=== PATIENT | male | born 1960 | race American Indian/Alaskan Native ===

== ENCOUNTER 2016-07-24 12:55 | Emergency (ER) | payer SELFPAY ==
[2016-07-24 14:13] LABS: Hematocrit 46.7 % (35.5-45.6); Hemoglobin 15.7 gm/dl (11.8-15.2); Mean Corpuscular HGB Conc 34 % (32-34); Mean Corpuscular Hemoglobin 33 pg (28-32); Mean Corpuscular Volume 97 fl (84-94); Platelet Count 282 K/mm3 (140-440); Red Blood Count 4.83 M/mm3 (3.65-5.03); Red Cell Distribution Width 14.3 % (13.2-15.2); White Blood Count 3.9 K/mm3 (4.5-11.0)
[2016-07-24 14:24] LABS: Anion Gap 17 mmol/L; BUN/Creatinine Ratio 11.42; Blood Urea Nitrogen 8 mg/dL (9-20); Calcium 8.9 mg/dL (8.4-10.2); Carbon Dioxide 26 mmol/L (22-30); Chloride 103.8 mmol/L (98-107); Glucose 109 mg/dL (75-100); Sodium 142 mmol/L (137-145)
[2016-07-24 14:49] LABS: Anisocytosis Few; Basophils % (Manual) 0 % (0.0-1.8); Blastocytes % (Manual) 0 %; Diff Status Complete
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
[2016-07-24 18:05] LABS: Bacteria,Urine 1+ /HPF (Negative); Bilirubin,Urine NEG (Negative); Blood,Urine NEG (Negative); Ketones,Urine NEG (Negative); Leukocyte Esterase,Urine NEG (Negative); Mucus,Urine FEW /HPF; Nitrite,Urine NEG (Negative); Protein,Urine <15 mg/dL mg/dL (Negative); Urobilinogen,Urine < 2.0 mg/dL (<2.0)
[2016-07-24] MEDS ORDERED: APRESOLINE ONE (18:12)
[2016-07-24] MEDS ORDERED: APRESOLINE PO ONE (18:18)
[2016-07-24] MEDS ORDERED: TYLENOL ONE (18:21)
[2016-07-24] MEDS ORDERED: TYLENOL PO ONE (18:37)
[2016-07-24] MEDS ORDERED: TENORMIN PO ONE (20:35)
[2016-07-24] MEDS ORDERED: NORCO 5/325 PO ONE (20:35)
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
[2016-07-24] MEDS ORDERED: CATAPRES PO ONE (22:22)
[2016-07-24 23:19] VITALS: BP 168/91
== END 2016-07-24 23:54 | disposition home or self-care (01) ==
LOC: ED 12:55
DX: I10 Essential (primary) hypertension (principal); M54.5 Low back pain; F17.200 Nicotine dependence, unspecified, uncomplicated
CPT/HCPCS: 36415; 80048; 81001; 85007; 85025

== ENCOUNTER 2017-02-26 07:16 | Emergency (ER) | payer OTHER ==
[2017-02-26 07:36] VITALS: BP 182/101
[2017-02-26] MEDS ORDERED: FIORICET PO ONE (10:54)
[2017-02-26] MEDS ORDERED: LIDOCAINE VISCOUS 2% MM NR (11:00)
[2017-02-26] MEDS ORDERED: SUBLIMAZE IV ONE (12:26)
--- NOTE | 2017-02-26 13:42 | Emergency Department Report ---
ED General Adult HPI - General Chief complaint: Dental/Oral Stated complaint: MOUTH PAIN/HEADACHE Time Seen by Provider: 02/26/17 09:59 Source: patient Mode of arrival: Ambulatory Limitations: No Limitations - History of Present Illness Initial comments: Patient is a 56-year-old male past medical history of arthralgia who presents with upper roof of mouth pain. He states the pain started yesterday he states is a 7 out of 10. It occurred suddenly he states he was eating and then he actually ate a piece of the of a toothpick which poked his mouth. He states that afterwards his mouth has been sore. And because he is having a headache located on the left temporal area it radiates to his mouth eating makes it worse and nothing makes it better. This is an achy type of pain. Patient also states that he is out of his pain medication for his arthralgia and he would like some hydrocodone. Severity scale (0 -10): 8 - Related Data Previous Rx's Medication Instructions Recorded Last Taken Type Atenolol [Tenormin] 50 mg PO BID #60 tablet 09/22/15 07/24/16 Rx HYDROcodone/APAP 5-325 [[place] 1 each PO Q6HR PRN #20 tablet 07/24/16 Unknown Rx 5/325] Naproxen [Naproxen TAB] 250 mg PO Q8HR PRN #20 tablet 02/26/17 Unknown Rx Allergies Allergy/AdvReac Type Severity Reaction Status Date / Time No Known Allergies Allergy Verified 07/24/16 13:45 ED Review of Systems ROS: Stated complaint: MOUTH PAIN/HEADACHE Other details as noted in HPI Constitutional: denies: chills, fever Eyes: denies: eye pain, eye discharge, vision change ENT: other (mouth pain). denies: ear pain, throat pain Respiratory: denies: cough, shortness of breath, wheezing Cardiovascular: denies: chest pain, palpitations Endocrine: no symptoms reported Gastrointestinal: denies: abdominal pain, nausea, diarrhea Genitourinary: denies: urgency, dysuria Musculoskeletal: denies: back pain, joint swelling, arthralgia Skin: denies: rash, lesions Neurological: headache. denies: weakness, paresthesias Psychiatric: denies: anxiety, depression Hematological/Lymphatic: denies: easy bleeding, easy bruising ED Past Medical Hx - Past Medical History Previous Medical History?: Yes Hx Hypertension: Yes Hx Arthritis: Yes Additional medical history: CHRONIC BACK PAIN - Surgical History Past Surgical History?: No - Social History Smoking Status: Current Some Day Smoker Substance Use Type: Alcohol, Marijuana, Prescribed - Medications Home Medications: Home Medications Medication Instructions Recorded Confirmed Last Taken Type Atenolol [Tenormin] 50 mg PO BID #60 tablet 09/22/15 07/24/16 07/24/16 Rx HYDROcodone/APAP 5-325 [[place] 1 each PO Q6HR PRN #20 tablet 07/24/16 Unknown Rx 5/325] Naproxen [Naproxen TAB] 250 mg PO Q8HR PRN #20 tablet 02/26/17 Unknown Rx ED Physical Exam - General Limitations: No Limitations General appearance: alert, in no apparent distress - Head Head exam: Present: atraumatic, normocephalic - Eye Eye exam: Present: normal appearance - ENT ENT exam: Present: mucous membranes moist, other (patient has poor dentition no puncture wound at roof of mouth just tenderness to palpation) - Neck Neck exam: Present: normal inspection - Respiratory Respiratory exam: Present: normal lung sounds bilaterally. Absent: respiratory distress - Cardiovascular Cardiovascular Exam: Present: regular rate, normal rhythm. Absent: systolic murmur, diastolic murmur, rubs, gallop - GI/Abdominal GI/Abdominal exam: Present: soft, normal bowel sounds - Rectal Rectal exam: Present: deferred - Extremities Exam Extremities exam: Present: normal inspection - Back Exam Back exam: Present: tenderness (paraspinal tenderness chronic in nature) - Neurological Exam Neurological exam: Present: alert, oriented X3, CN II-XII intact - Psychiatric Psychiatric exam: Present: normal affect, normal mood - Skin Skin exam: Present: warm, dry, intact, normal color. Absent: rash ED Course Vital Signs 02/26/17 07:33 Temperature 98.3 F Pulse Rate 60 Respiratory 20 Rate Blood Pressure 182/101 O2 Sat by Pulse 97 Oximetry - Reevaluation(s) Reevaluation #1: 02/26/17 13:43 Patient states he saw and better after the pain medicine I will send patient home with naproxen to take. For his arthralgia. ED Medical Decision Making - Medical Decision Making Chief medical diagnosis: Oral roof puncture wound Differential medical diagnosis: Tension headache, chronic arthralgia I will give patient viscous lidocaine IV analgesia for his pain, and oral fiorcet. Patient is feeling better discussed with patient that he will not be sent home with narcotic pain medication but I can give him NSAIDs for his arthralgia. Patient agrees the plan. I will send patient home additional verbal discharge instructions were given. Patient has no puncture wound at the roof of his mouth. Critical care attestation.: If time is entered above; I have spent that time in minutes in the direct care of this critically ill patient, excluding procedure time. ED Disposition Clinical Impression: Tension headache, Acute pain of mouth Low back pain Qualifiers: Chronicity: chronic Back pain laterality: bilateral Sciatica presence: without sciatica Qualified Code(s): M54.5 - Low back pain; G89.29 - Other chronic pain Disposition: DC- TO HOME OR SELFCARE Is pt being admited?: No Does the pt Need Aspirin: No Condition: Stable Prescriptions: Naproxen [Naproxen TAB] 250 mg PO Q8HR PRN #20 tablet PRN Reason: Pain Referrals: PRIMARY CARE, [Primary Care Provider] - 3-5 Days
== END 2017-02-26 16:30 | disposition home or self-care (01) ==
LOC: ED 07:16
DX: G44.209 Tension-type headache, unspecified, not intractable (principal); M54.5 Low back pain; G89.29 Other chronic pain; I10 Essential (primary) hypertension; M19.90 Unspecified osteoarthritis, unspecified site; F12.10 Cannabis abuse, uncomplicated; F17.200 Nicotine dependence, unspecified, uncomplicated
CPT/HCPCS: 96374; 99283; J3010

== ENCOUNTER 2018-07-22 10:29 | Emergency (ER) | payer MEDICAID ==
[2018-07-22] MEDS ORDERED: MORPHINE IV ONE (11:00)
[2018-07-22] MEDS ORDERED: NACL 0.9% 1000 ML 1,000 ML IV ONE (11:00)
--- NOTE | 2018-07-22 11:09 | Emergency Department Report ---
HPI - General Chief Complaint: Headache Time Seen by Provider: 07/22/18 10:46 - HPI HPI: 58-year-old -[place] male presents to the emergency department from home with 2 different complaints, both of which started been going on for the past 3 days. First, the patient complains of some low back pain. He denies any particular inciting event or trauma/injury. He denies any problems with bowel or bladder, numbness, or any neurological deficits. Secondly, the patient complains of a headache mostly to the left frontal and temporal area of the h ead. He denies any actual vision change but says that he occasionally will see some "black spots." He denies any nausea, vomiting, fever, trouble with movement or ambulation. He does complain of some paresthesias to the left arm and more recently to the right hand. Patient has a past medical history of hypertension and arthritis. The patient was here one time prior, in 2017, for a headache. He has been taking Tylenol for all his symptoms without much relief. No recent travel or sick contacts at home. His primary care [facility] to [facility]. ED Past Medical Hx - Past Medical History Previous Medical History?: Yes Hx Hypertension: Yes Hx Arthritis: Yes Additional medical history: CHRONIC BACK PAIN - Surgical History Past Surgical History?: No - Social History Smoking Status: Light Tobacco Smoker Substance Use Type: Alcohol, Prescribed - Medications Home Medications: Home Medications Medication Instructions Recorded Confirmed Last Taken Type RX: Naproxen [Naproxen TAB] 250 mg PO Q8HR PRN #20 tablet 02/26/17 Unknown Rx RX: Atenolol [Tenormin] 50 mg PO BID #60 tablet 07/22/18 Unknown Rx RX: HYDROcodone/APAP 5-325 [[place] 1 each PO Q6HR PRN #10 tablet 07/22/18 Unknown Rx 5-325 mg TAB] ED Review of Systems ROS: Stated complaint: HEADACHE/BACK PAIN/BLOOD PRESSURE Other details as noted in HPI Comment: All other systems reviewed and negative Constitutional: denies: chills, fever Eyes: denies: eye pain, eye discharge ENT: denies: ear pain, throat pain Respiratory: denies: cough, shortness of breath Cardiovascular: denies: chest pain, palpitations Gastrointestinal: denies: abdominal pain, vomiting Genitourinary: denies: dysuria, frequency Musculoskeletal: back pain, myalgia Skin: denies: rash, lesions Neurological: headache, paresthesias. denies: weakness, numbness, confusion Physical Exam - Physical Exam Vital Signs: Vital Signs 07/22/18 10:33 Temperature 98.2 F Pulse Rate 71 Respiratory 22 Rate Blood Pressure 147/90 O2 Sat by Pulse 99 Oximetry Physical Exam: GENERAL: The patient is well-developed well-nourished. HEENT: Normocephalic. Atraumatic. Patient has moist mucous membranes. EYES: Extraocular motions are intact. Pupils are equal and reactive to light bilaterally. No nystagmus. NECK: Supple. Trachea is midline. CHEST/LUNGS: Clear to auscultation. There is no respiratory distress noted. HEART/CARDIOVASCULAR: Regular. There is no tachycardia. There is no obvious murmur. ABDOMEN: Abdomen is soft, nontender. Patient has normal bowel sounds. There is no abdominal distention. SKIN: Skin is warm and dry. NEURO: The patient is awake, alert, and oriented. The patient is cooperative. The patient has no focal neurologic deficits. The patient has normal speech. Cranial nerves II through XII grossly intact. MUSCULOSKELETAL: There is no tenderness or deformity. There is no limitation range of motion. There is no evidence of acute injury. Muscle strength 5 out of 5 upper and lower extremities bilaterally. Capillary refill less than 2 seconds and radial pulses +2 over 4 bilaterally. BACK: There is both midline and bilateral paraspinal lumbar tenderness to palp ation but no step-off or deformity. ED Course Vital Signs 07/22/18 10:33 Temperature 98.2 F Pulse Rate 71 Respiratory 22 Rate Blood Pressure 147/90 O2 Sat by Pulse 99 Oximetry ED Medical Decision Making - Lab Data Result diagrams: 07/22/18 11:22 07/22/18 11:22 - Radiology Data Radiology results: report reviewed, image reviewed interpreted by me: X-ray of the lumbar spine does not show any fracture, subluxation or any acute process. CT HEAD WITHOUT CONTRAST: HISTORY: Headache. TECHNIQUE: Sequential 2.5mm CT images. COMPARISON: 09/22/15. FINDINGS: Cerebral Parenchyma: Within normal limits. Cerebellum: Within normal limits. Brainstem: Within normal limits. Ventricles: Normal. Sella: Normal. Extra-axial spaces: Normal. Basal Cisterns: Normal. Intracranial Hemorrhage: None. Midline Shift: None. Calvarium: Normal. Sinuses: The left frontal sinus is nearly occluded. The remaining visualized sinuses are well-aerated. Mastoid Air Cells: Normal. Visualized Orbits: Normal. IMPRESSION: Cranial CT scan within normal limits. Chronic left frontal sinus disease. Transcribed By: TTR Dictated By: DELLA CATHERINE JR, MD Electronically Authenticated By: DELLA CATHERINE JR, MD Signed Date/Time: 07/22/18 1126 - Medical Decision Making Regarding the patient's back pain, x-ray did not show any fracture, dislocation, subluxation, or any acute process. Patient does not have any numbness, problems with bowel or bladder, or any neurological deficits. He appears low suspicion for any of the emergent conditions such as cauda equina, cord compression syndrome, epidural abscess. Patient was seen ambulatory prior to discharge and appeared stable while doing so and says that he feels well. Regarding the patient's headache, CT of the brain did not show any bleed, shift, mass, ischemia or any other acute process. Patient does not have any focal, motor or sensory deficits and his cranial nerves are intact. Patient gives a description of some paresthesias as opposed to any numbness. Vital signs stable throughout his ED course. Patient was given some IV fluid and a dose of pain medication and upon reevaluation is feeling greatly improved. He will be discharged home to follow up with his primary care physician. He will return to the ER with any worsening of symptoms or any acute distress. - Differential Diagnosis lumbar strain, muscle spasm, tension headache, sinus headache, brain bleed Critical Care Time: No Critical care attestation.: If time is entered above; I have spent that time in minutes in the direct care of this critically ill patient, excluding procedure time. ED Disposition Clinical Impression: Paresthesia, Essential hypertension Headache Qualifiers: Headache type: unspecified Headache chronicity pattern: acute headache Intractability: not intractable Qualified Code(s): R51 - Headache Low back pain Qualifiers: Chronicity: unspecified Back pain laterality: unspecified Sciatica presence: without sciatica Qualified Code(s): M54.5 - Low back pain Disposition: - TO HOME OR SELFCARE Is pt being admited?: No Condition: Stable Instructions: Acute Headache (ED), Paresthesia (ED), Hypertension (ED), Back Pain (ED) Additional Instructions: Please follow-up with your primary care physician in the next few days. Return to the emergency department with any return or worsening of your symptoms or any acute distress. You have been prescribed a medication that can be sedating. Therefore, this medication cannot be taken prior to driving, working, being responsible for children, and cannot be mixed with alcohol of any quantity. Prescriptions: RX: Atenolol [Tenormin] 50 mg PO BID #60 tablet RX: HYDROcodone/APAP 5-325 [[place] 5-325 mg TAB] 1 each PO Q6HR PRN #10 tablet PRN Reason: Pain Referrals: PRIMARY CARE, [Primary Care Provider] - GABRIELA - Assessment Assessment Interval: Baseline - Level of Consciousness 1a. Level of Consciousness: alert/keenly responsive - LOC Questions 1b. LOC Questions: answers both correctly - LOC Command 1c. LOC Commands: performs tasks correctly - Best Gaze 2. Best Gaze: normal - Visual 3. Visual: no visual loss - Facial Palsy 4. Facial Palsy: normal symmetrical movement - Motor Arm 5b. Motor Arm Right: no drift 5a. Motor Arm Left: no drift - Motor Leg 6b. Motor Leg Right: no drift 6a. Motor Leg Left: no drift - Limb Ataxia 7. Limb Ataxia: absent - Sensory 8. Sensory: normal - Best Language 9. Best Language: no aphasia - Dysarthria 10. Dysarthria: normal - Extinction and Inattention 11. Extinction/Inattention: no abnormality - Scoring Total Score: 0 Stroke Severity: No Stroke Symptoms
--- NOTE | 2018-07-22 11:28 | Cat Scan Report ---
CT HEAD WITHOUT CONTRAST: HISTORY: Headache. TECHNIQUE: Sequential 2.5mm CT images. COMPARISON: 09/22/15. FINDINGS: Cerebral Parenchyma: Within normal limits. Cerebellum: Within normal limits. Brainstem: Within normal limits. Ventricles: Normal. Sella: Normal. Extra-axial spaces: Normal. Basal Cisterns: Normal. Intracranial Hemorrhage: None. Midline Shift: None. Calvarium: Normal. Sinuses: The left frontal sinus is nearly occluded. The remaining visualized sinuses are well-aerated. Mastoid Air Cells: Normal. Visualized Orbits: Normal. IMPRESSION: Cranial CT scan within normal limits. Chronic left frontal sinus disease.
[2018-07-22 11:30] LABS: Basophils % (Auto) 0.7 % (0.0-1.8); Eosinophils # (Auto) 0.2 K/mm3 (0.0-0.4); Eosinophils % (Auto) 3.2 % (0.0-4.3); Hematocrit 43.4 % (35.5-45.6); Hemoglobin 14.6 gm/dl (11.8-15.2); Lymphocytes # (Auto) 1.7 K/mm3 (1.2-5.4); Lymphocytes % (Auto) 30.5 % (13.4-35.0); Mean Corpuscular HGB Conc 34 % (32-34); Mean Corpuscular Volume 101 fl (84-94); Monocytes # (Auto) 0.4 K/mm3 (0.0-0.8); Monocytes % (Auto) 7.9 % (0.0-7.3); Platelet Count 232 K/mm3 (140-440); Red Blood Count 4.32 M/mm3 (3.65-5.03); Red Cell Distribution Width 14.6 % (13.2-15.2)
[2018-07-22 11:53] LABS: BUN/Creatinine Ratio 13; Blood Urea Nitrogen 10 mg/dL (9-20); Hemolysis Index 103
--- NOTE | 2018-07-22 12:01 | XRay Report ---
AP AND LATERAL LUMBOSACRAL SPINE: History: Back pain. The vertebral bodies are well mineralized and normal in alignment and vertebral height with well preserved interspace distances. The visualized portions of the posterior elements are normal. IMPRESSION: Lumbar spine within normal limits.
[2018-07-22 13:03] VITALS: BP 150/66
[2018-07-22 13:12] LABS: Erythrocyte Sedimentation Rate 6 mm/Hr (0-20)
== END 2018-07-22 12:58 | disposition home or self-care (01) ==
LOC: ED 10:29
DX: M54.5 Low back pain (principal); R51 Headache; R20.2 Paresthesia of skin; G89.29 Other chronic pain; I10 Essential (primary) hypertension; M19.90 Unspecified osteoarthritis, unspecified site; F17.200 Nicotine dependence, unspecified, uncomplicated
CPT/HCPCS: 36415; 70450; 72100; 80048; 83735; 85025; 85652; 86140; 96374; 99285; J2270; J7030

== ENCOUNTER 2019-07-29 03:53 | Emergency (ER) | payer MEDICAID ==
[2019-07-29] MEDS ORDERED: MAGNESIUM SULFATE 2 GM/50 ML BAG IV ONE (04:02)
[2019-07-29] MEDS ORDERED: METOCLOPRAMIDE 10 MG/2 ML INJ IV ONE (04:02)
[2019-07-29] MEDS ORDERED: LIDOCAINE (4%) 40 MG/ML TOPICAL SOLN 50 ML BOTTLE TP ONE (04:02)
[2019-07-29] MEDS ORDERED: diphenhydrAMINE 50 MG/ML VIAL IV ONE (04:02)
[2019-07-29] MEDS ORDERED: dexAMETHasone 4 MG/ML VIAL IV ONE (04:02)
[2019-07-29] MEDS ORDERED: levETIRAcetam 1000 MG/NS 0.75% 1,000 MG/100 ML BAG IV ONE (04:23)
--- NOTE | 2019-07-29 04:28 | Emergency Department Report ---
ED General Adult HPI - General Chief complaint: Headache Stated complaint: HYPERTENSION Source: patient, EMS (verbal report received from emergency medical services. EMS records and documentation not available for review), RN notes reviewed Mode of arrival: Stretcher Limitations: No Limitations - History of Present Illness Initial comments: Patient is a 59-year-old gentleman who is not known to this provider previously, brought to the hospital by emergency medical services with a complaint of headache. The headache started suddenly a few hours ago. The headache was sudden and maximal in intensity at the onset. It is not somewhat to prior headaches. There is neck discomfort. No fevers that he is aware of. No trauma. No recent anticoagulants. No extremity weakness and/or numbness. Took aspirin at home [id number], with minimal relief in symptoms. No endo rsement of weakness and/or numbness. -: Sudden Location: head Quality: stabbing, aching Consistency: constant Improves with: none Worsens with: movement Associated Symptoms: headaches - Related Data Previous Rx's Medication Instructions Recorded Last Taken Type Naproxen [Naproxen TAB] 250 mg PO Q8HR PRN #20 tablet 02/26/17 Unknown Rx HYDROcodone/APAP 5-325 [[place] 1 each PO Q6HR PRN #10 tablet 07/22/18 Unknown Rx 5-325 mg TAB] atenoloL [Tenormin] 50 mg PO BID #60 tablet 07/22/18 Unknown Rx Allergies Allergy/AdvReac Type Severity Reaction Status Date / Time No Known Allergies Allergy Verified 07/24/16 13:45 ED Review of Systems ROS: Stated complaint: HYPERTENSION Other details as noted in HPI Constitutional: malaise. denies: fever Eyes: denies: eye discharge ENT: denies: congestion Respiratory: denies: wheezing Cardiovascular: denies: syncope Gastrointestinal: denies: vomiting Genitourinary: as per HPI Musculoskeletal: as per HPI Skin: as per HPI Neurological: as per HPI, headache Hematological/Lymphatic: denies: easy bleeding ED Past Medical Hx - Past Medical History Previous Medical History?: Yes Hx Hypertension: Yes Hx Arthritis: Yes Additional medical history: CHRONIC BACK PAIN - Surgical History Past Surgical History?: No - Social History Smoking Status: Current Every Day Smoker Substance Use Type: Alcohol - Medications Home Medications: Home Medications Medication Instructions Recorded Confirmed Last Taken Type Naproxen [Naproxen TAB] 250 mg PO Q8HR PRN #20 tablet 02/26/17 Unknown Rx HYDROcodone/APAP 5-325 [[place] 1 each PO Q6HR PRN #10 tablet 07/22/18 Unknown Rx 5-325 mg TAB] atenoloL [Tenormin] 50 mg PO BID #60 tablet 07/22/18 Unknown Rx ED Physical Exam - General Limitations: No Limitations General appearance: alert, anxious, in distress - Head Head exam: Present: atraumatic, normocephalic - Eye Eye exam: Present: normal appearance, PERRL, EOMI. Absent: nystagmus - ENT ENT exam: Present: normal exam, normal orophraynx, mucous membranes moist, normal external ear exam - Neck Neck exam: Present: normal inspection, full ROM, other (patient has full range of motion but neck range of motion is noted to be stiff moving left and right, up-and-down). Absent: lymphadenopathy, thyromegaly - Respiratory Respiratory exam: Present: normal lung sounds bilaterally. Absent: respiratory distress - Cardiovascular Cardiovascular Exam: Present: regular rate, normal rhythm, normal heart sounds. Absent: bradycardia, tachycardia, irregular rhythm, systolic murmur, diastolic murmur, rubs, gallop - GI/Abdominal GI/Abdominal exam: Present: soft. Absent: distended, tenderness, guarding, rebound, rigid, pulsatile mass - Rectal Rectal exam: Present: deferred - Extremities Exam Extremities exam: Present: normal inspection, full ROM, other (2+ pulses noted in the bilateral upper and lower extremities. There is no long bony tenderness. The pelvis is stable. The muscular compartments are soft. There is no palpable cord. There is no redness, pus or streaking.). Absent: pedal edema, calf tenderness - Back Exam Back exam: Present: normal inspection, full ROM. Absent: tenderness, CVA tenderness (R), CVA tenderness (L), paraspinal tenderness, vertebral tenderness - Neurological Exam Neurological exam: Present: alert, oriented X3, other (there is no facial droop. Tongue is midline. Extraocular movements are intact bilaterally. Walking with a steady gait. Speaking in full sentences. Normal appropriate thought content. 5 out of 5 strength in 4 extremities. Sensation is intact to light touch in 4 extremities.). Absent: motor sensory deficit - Psychiatric Psychiatric exam: Present: normal affect, normal mood, anxious - Skin Skin exam: Present: warm, dry, intact, normal color. Absent: rash ED Course Vital Signs 07/29/19 07/29/19 07/29/19 03:55 04:02 04:15 Temperature 101.8 F H Pulse Rate 72 71 Respiratory 15 Rate Blood Pressure 163/86 Blood Pressure 165/94 163/86 [left arm] O2 Sat by Pulse 100 99 98 Oximetry 07/29/19 07/29/19 07/29/19 04:30 04:39 04:45 Temperature Pulse Rate 82 87 72 Respiratory 18 Rate Blood Pressure 163/86 Blood Pressure 213/116 177/88 [left arm] O2 Sat by Pulse 98 98 97 Oximetry 07/29/19 07/29/19 07/29/19 04:46 05:00 05:16 Temperature Pulse Rate 74 Respiratory 15 Rate Blood Pressure 216/113 177/88 Blood Pressure 174/93 [left arm] O2 Sat by Pulse 96 99 98 Oximetry 07/29/19 07/29/19 07/29/19 05:30 05:44 05:45 Temperature Pulse Rate 75 77 Respiratory Rate Blood Pressure 140/81 156/79 Blood Pressure 140/81 143/80 [left arm] O2 Sat by Pulse 96 98 96 Oximetry - Reevaluation(s) Reevaluation #1: 07/29/19 04:26 Differential diagnosis, including not limited to: Subarachnoid hemorrhage Assessment and plan: 59-year-old gentleman with rather classic presentation worse headache of his life, with neck discomfort. He is alert, oriented and sober, fever is reviewed and appreciated, based off of CAT scan, and CAT scan findings, do not suspect meningitis, but rather a subarachnoid hemorrhage. Nothing by mouth, head of bed elevated to 30, nimodipine ordered, Keppra ord ered, analgesia ordered, this hospital does not have neurology critical care, and we do not have neuro surgery, and he will therefore be transferred to a facility that can offer these capabilities. This patient has an emergent medical condition which cannot be definitively managed at this hospital secondary to lack of necessary subspecialty resources. We will treat his pain, and arrange for transfer. At the moment, GCS 15, Gilbert and anderson score is 1. Discussed plan of care with patient, and family who verbalized understanding. Reevaluation #2: 07/29/19 04:38 Dr [facility] neuro critical care calls back At this moment they did not have an available bed. He will determine and see if he can make bed availability. The meantime, I recommend aminocaproic acid, as well as Cardizem drip, ideal blood pressure less than 130 mm hg. We will reach out to [facility] to see if they can accommodate Reevaluation #3: 07/29/19 04:53 Dr Mathews accepts to [facility] He specifically advised to not administer aminocaproic acid, if EKG showed evidence of myocardial injury old or new. EKG reviewed and appreciated, therefore, aminocaproic acid canceled bp elevated nimodipine for vasospasm prevention Spinal tap will not be performed secondary to concern for elevated intracranial pressure. Based on history and physical, do not suspect meningitis 07/29/19 05:15 ED Medical Decision Making - Lab Data Result diagrams: 07/29/19 04:25 07/29/19 04:25 Vital Signs 07/29/19 03:55 Temperature 101.8 F H Pulse Rate 72 Respiratory 15 Rate Blood Pressure 165/94 [left arm] O2 Sat by Pulse 100 Oximetry - EKG Data -: EKG Interpreted by Id EKG shows normal: sinus rhythm - EKG Data When compared to previous EKG there are: previous EKG unavailable 07/29/19 05:15 Sinus rhythm, 63 bpm, normal axis, poor R progression, left ventricular hypertrophy, no prior for comparison, not a STEMI. Abnormal. - Radiology Data Radiology results: report reviewed, image reviewed Print Report Referring Physician: LOUIS MUJICA Patient Name: GERARDO SYLVESTER Date of : 1960 Sex: Male Report Date: 2019-07-29 Report Status: Finalized Findings [facility] [address] [place] [address] Cat Scan Report Signed Patient: GERARDO SYLVESTER MR#: [id number] : 1960 Acct:[id number] Age/Sex: 59 / M ADM Date: 07/29/19 Loc: ED Attending Dr: Ordering Physician: LOUIS MUJICA MD Date of Service: 07/29/19 Procedure(s): CT head/brain wo con Accession Number(s): [id number] cc: LOIUS MUJICA MD CT HEAD WITHOUT CONTRAST INDICATION: Headache neck pain hypertension TECHNIQUE: Axial slices were obtained through the head. Coronal and sagittal reformatted images were obtained. COMPARISON: 07/22/2018 FINDINGS: There is extensive subarachnoid hemorrhage this is most prominent inferiorly around the sella. Ventricles are normal in size and position. There is no mass lesion or midline shift. There is a new hypodensity in the right aspect of the midbrain was not present previously the appearance is suggestive of a lacunar infarct. Bone windows demonstrate no acute osseous abnormality. Paranasal sinuses and mastoid air cells appear clear. TECHNIQUE: All CT scans at this facility use dose modulation, iterative reconstruction, automated exposure control, weight based dosing, when appropriate, to reduce radiation dose to as low as reasonably achievable. IMPRESSION: 1. There is extensive subarachnoid hemorrhage. 2. Hypodensity in the right aspect of the midbrain is characteristic of a small infarction. Low density suggest that this is subacute or chronic. This was not present in July 2018. CRITICAL RESULT: [facility] Central time Report was confirmed. Signer Name: Avinash Sanders MD Signed: 07/29/2019 4:31 AM Workstation Name: [id number] Transcribed By: SS Dictated By: Avinash Sanders MD Electronically Authenticated By: Avinash Sanders MD Signed Date/Time: 07/29/19 0431 Critical Care Time: Yes Critical care time in (mins) excluding proc time.: 60 Critical care attestation.: If time is entered above; I have spent that time in minutes in the direct care of this critically ill patient, excluding procedure time. ED Disposition Clinical Impression: Subarachnoid hemorrhage Disposition: [id number] GEN HOSP IP Is pt being admited?: No Does the pt Need Aspirin: No Condition: Critical Referrals: PRIMARY CARE, [Primary Care Provider] - 3-5 Days
--- NOTE | 2019-07-29 04:35 | Cat Scan Report ---
CT HEAD WITHOUT CONTRAST INDICATION: Headache neck pain hypertension TECHNIQUE: Axial slices were obtained through the head. Coronal and sagittal reformatted images were obtained. COMPARISON: 07/22/2018 FINDINGS: There is extensive subarachnoid hemorrhage this is most prominent inferiorly around the sella. Ventricles are normal in size and position. There is no mass lesion or midline shift. There is a new hypodensity in the right aspect of the midbrain was not present previously the appearance is suggesti ve of a lacunar infarct. Bone windows demonstrate no acute osseous abnormality. Paranasal sinuses and mastoid air cells appear clear. TECHNIQUE: All CT scans at this facility use dose modulation, iterative reconstruction, automated ex posure control, weight based dosing, when appropriate, to reduce radiation dose to as low as reasonab ly achievable. IMPRESSION: 1. There is extensive subarachnoid hemorrhage. 2. Hypodensity in the right aspect of the midbrain is characteristic of a small infarction. Low densi ty suggest that this is subacute or chronic. This was not present in July 2018. CRITICAL RESULT: [facility] Central time Report was confirmed. Signer Name: Avinash Sanders MD Signed: 07/29/2019 4:31 AM Workstation Name: [id number]
[2019-07-29] MEDS ORDERED: AMINOCAPROIC ACID 5,000 MG in SODIUM CHLORIDE 0.9% 100 ML IV ONE (04:36)
[2019-07-29] MEDS ORDERED: niMODipine 30 MG CAP PO ONE (04:43)
[2019-07-29] MEDS ORDERED: niCARdipine 50 MG in SODIUM CHLORIDE 0.9% 250ML 230 ML IV SCH (05:00)
[2019-07-29 05:08] LABS: Basophils % (Auto) 0.4 % (0.0-1.8); Eosinophils # (Auto) 0.1 K/mm3 (0.0-0.4); Eosinophils % (Auto) 1.1 % (0.0-4.3); Hematocrit 37.5 % (35.5-45.6); Hemoglobin 13.1 gm/dl (11.8-15.2); Lymphocytes # (Auto) 1.2 K/mm3 (1.2-5.4); Lymphocytes % (Auto) 20.1 % (13.4-35.0); Mean Corpuscular HGB Conc 35 % (32-34); Mean Corpuscular Volume 98 fl (84-94); Monocytes # (Auto) 0.5 K/mm3 (0.0-0.8); Monocytes % (Auto) 8.5 % (0.0-7.3); Platelet Count 258 K/mm3 (140-440); Red Blood Count 3.82 M/mm3 (3.65-5.03); Red Cell Distribution Width 14.3 % (13.2-15.2)
[2019-07-29 05:15] LABS: INR 0.97 (0.87-1.13)
[2019-07-29 05:16] LABS: Partial Thromboplastin Time 28.5 Sec. (24.2-36.6)
[2019-07-29 05:22] LABS: BUN/Creatinine Ratio 23; Blood Urea Nitrogen 18 mg/dL (9-20); Calcium 8.9 mg/dL (8.4-10.2); Hemolysis Index 5
[2019-07-29 05:50] VITALS: BP 156/79
== END 2019-07-29 05:58 | disposition short-term general hospital (02) ==
LOC: ED 03:53
DX: I60.9 Nontraumatic subarachnoid hemorrhage, unspecified (principal); I10 Essential (primary) hypertension; M19.90 Unspecified osteoarthritis, unspecified site; F10.10 Alcohol abuse, uncomplicated; F17.200 Nicotine dependence, unspecified, uncomplicated; Z79.899 Other long term (current) drug therapy
CPT/HCPCS: 36415; 70450; 80048; 82140; 82550; 83735; 85025; 85610; 85730; 87040; 93005; 93010; 96365; 96367; 96375; 99291; J1100; J1200; J1953; J2765; J3475; J7050

== ENCOUNTER 2019-10-27 16:08 | Emergency (ER) | payer MEDICAID | END 2019-10-27 16:12 | disposition left against medical advice (07) | LOC: ED 16:08 | DX: M25.559 Pain in unspecified hip (principal); Z53.21 Procedure and treatment not carried out due to patient leaving prior to being seen by health care provider ==